=== PATIENT | male | born 1990 | race Caucasian/White ===

== ENCOUNTER 2020-08-23 21:10 | Emergency (ER) | payer OTHER ==
[~2020-08-23] VITALS: Ht 213.4 cm; Wt 101.2 kg
[2020-08-23] MEDS ORDERED: XYLOCAINE 1%-EPI 1:100,000 ONE (21:30)
[2020-08-23 21:54] VITALS: BP 154/85
[2020-08-23] MEDS ORDERED: KEFLEX PO STA (21:55)
[2020-08-23] MEDS ORDERED: KEFLEX PO ONE (21:56)
[2020-08-23] MEDS ORDERED: ADACEL VIAL IM ONE (22:00)
--- NOTE | 2020-08-23 22:04 | NUR ---
Lido with Epi was used by Dr. López for lac repair.
--- NOTE | 2020-08-23 22:05 | ER.PDOC ---
General Chief Complaint: Requesting Medical Care Stated Complaint: HAND LAC Time seen by MD: 21:30 Source: patient Exam Limitations: no limitations History of Present Illness Initial Comments Patient is a 30-year-old man who presents to the emergency department with chief complaint of 3 cm laceration to the base of his left hand after accidentally stabbing himself with a knife while attempting to open a zip tie approximately 2 hours prior to arrival.Patient states he was having persistent bleeding and thought he should get it checked. Patient states he has some decrease sensation over his index and long fingers but denies any other numbness or weakness. He denies any foreign body. Patient states his last tetanus was in 2012. Occurred: this evening (Around 7 PM) Where: home Severity: mild Context: laceration Location of Injury: (L) hand Modifying Factors: nothing Past Medical History Medical History: no pertinent history Surgical History: no surgical history Family History Significant Family History: no pertinent family hx Social History Smoking: non-smoker Review of Systems Musculoskeletal: denies joint pain, denies joint swelling, denies muscle pain Skin: denies rash Psychiatric/Neurological: denies anxiety All Other Systems: Reviewed and Negative Physical Exam General Appearance: Alert, No Apparent Distress Hand: no evidence FB, tenderness (3 cm linear laceration over the volar aspect of the base of the left hand. I am able to visualize muscle at the base of the tissue without evidence of muscle injury.), deformity Wrist: nml inspection, non-tender, nml ROM Neuro: motor nml, digital nerve deficit (Patient reports slightly decreased sensation over the volar aspect of his index and long fingers.) Vascular: no vascular compromise Tendons: tendon function nml Forearm/Elbow/Arm: uninjured above wrist Skin: warm/dry Head/ENT: nml inspection Neck/Back: nml inspection Resp/CVS: no resp distress ED LACERATION WOUND REPAIR # of Wounds/Lacerations Presen: 1 Wound Length (cm): 3 Distal NVT: neuro intact (Slightly decreased sensation over the volar aspect of the left index and long fingers. The remainder of his sensation was normal.), vasc intact Anesthesia type: local Anesthesia: Lidocaine w/ Epi Volume Anesthetic (ccs): 3 Wound's Depth, Shape: linear, into muscle Irrigated w/ Saline (ccs): 90 Wound Explored: no foreign body removed Wound Repaired With: sutures Suture Size/Type: 5:0, prolene Suture Style: running Number of Sutures: 5 Layer Closure?: No Sterile Dressing Applied?: Yes Results/Orders Results/Orders Orders - ANKIT JAQUEZ MD Cephalexin (Keflex) (08/23/20 21:55) Diph,Pertuss(Acell),Tet Vac/Pf (Adacel V (08/23/20 22:00) Cephalexin (Keflex) (08/23/20 21:56) Progress Progress Patient was given cephalexin 500 mg orally due to the depth of the wound.Patient was given a tetanus booster. Patient had the wound closed per the procedure note.Patient has normal motor movement but does have some slight decreased sensation over the volar aspect of theDistal index and long fingers. I explained to him that if this decree sensation does not go away in the next couple days he may have to follow-up with a hand specialist. Patient has 3 cm laceration to his left hand with some decreased sensation of the volar aspect of his left index and long fingers. He does not appear to have fracture, dislocation, arterial injury, deep space infection, burn, or other serious etiology of his symptoms. Patient will be discharged home. ER DEPART Departure Time of Disposition: 22:07 Disposition: 01 HOME / SELF CARE / HOMELESS Impression: Primary Impression: Laceration of hand, left Condition: Improved Referrals: PCP,ALEXANDRO (PCP) PRIMARY CARE PROVIDER Additional Instructions: Return immediately if wound is more red, swollen, painful, or drains pus. Wound check in 2 days. Sutures out in 7 to 10 days. Keep wound clean and dry. Cephalexin as prescribed for the next 5 days. Follow-up with primary care physician for suture removal and reevaluation of sensory function of fingers. If loss of sensation persists you will need to be referred to hand specialist. Duration or Time Spent with Pa: 30 min Return to Work/School Can a patient return to work?: Yes (Keep wound clean and dry.) Problem Qualifiers Primary Impression: Laceration of hand, left Encounter type: initial encounter Foreign body presence: without foreign body Qualified Codes: S61.412A - Laceration without foreign body of left hand, initial encounter ANKIT JAQUEZ MD Aug 23, 2020 22:05
== END 2020-08-23 22:20 | disposition home or self-care (01) ==
LOC: ER 21:10
DX: S61.412A Laceration without foreign body of left hand, initial encounter (principal); W26.0XXA Contact with knife, initial encounter; Y93.89 Activity, other specified; Y92.89 Other specified places as the place of occurrence of the external cause; Y99.8 Other external cause status
CPT/HCPCS: 12002; 99283